=== PATIENT | male | born 1955 | race Caucasian/White ===

== ENCOUNTER 2021-10-06 19:37 | Emergency (ER) | payer BC, SELFPAY ==
[2021-10-06] VITALS (8 sets, daily range): BP systolic 129–219; BP diastolic 70–131; PULSE 74–125; RESP 12–22; TEMP 35.9–36.8; O2SAT 95–100
--- NOTE | ~2021-10-06 | XR_ITS ---
EXAMINATION: XR ankle LT min 3V DATE: 10/06/2021 19:51 INDICATION: Left ankle injury and pain and swelling. TECHNIQUE: 4 views of left ankle were obtained. COMPARISON: None. FINDINGS: There is a comminuted fracture of tibial plafond. The main distal fracture fragment which i ncludes the medial malleolus demonstrates 13 mm medial displacement and shortening. There is medial a nd proximal dislocation of talus with respect to the distal fibula. 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 There are enthesophytes at the posterior and plantar aspects of calcaneal tuberos ity. There is ankle soft tissue swelling. IMPRESSION: 1. Comminuted fracture of distal tibia. Reviewed, dictated and finalized at location A.
--- NOTE | ~2021-10-06 | XR_ITS ---
EXAMINATION: XR ankle LT 2V DATE: 10/06/2021 22:23 INDICATION: Distal left tibia fracture status post reduction. TECHNIQUE: 2 views of left ankle were obtained. COMPARISON: Left ankle radiographs at 7:43 PM FINDINGS: There is a comminuted fracture of tibial plafond. The main distal fracture fragment which i ncludes the medial malleolus demonstrates 13 mm medial displacement and shortening. There is medial a nd proximal dislocation of talus with respect to the distal fibula. 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 There are enthesophytes at the posterior and plantar aspects of calcaneal tuberos ity. There is ankle soft tissue swelling. Cast material is noted. IMPRESSION: 1. Comminuted fracture of distal tibia without change in alignment. Reviewed, dictated and finalized at location A.
[2021-10-06] MEDS: MORPHINE SULFATE (*CRX) 4 MG/ML INJ IV PUSH (21:14)
--- NOTE | 2021-10-06 21:17 | ED.LOWEXIN ---
HPI - Extremity Injury (Lower) General Chief Complaint: Extremity Injury, Lower Stated Complaint: left ankle pain Time Seen by Provider: 10/06/21 20:48 History of Present Illness HPI Narrative: 66-year-old male who excellently fell onto the right wall about 4 feet up, landing on his left foot, now endorsing severe pain from his left calf down. No numbness or tingling. Related Data Allergies Allergy/AdvReac Type Severity Reaction Status Date / Time No Known Allergies Allergy Unverified 01/24/16 10:51 Review of Systems Review of Systems: CONST: No fever. HEENT: No headache C/V: No chest pain RESP: No difficulty breathing GI: No nausea vomiting BACK: No pain M/S: Left foot pain. SKIN: No abrasions NEURO: No focal numbness PSYCH: [No depression] [facility] Surgical History Surgical History (Updated 10/07/21 @ 01:41 by Katiana Arce MD) History of intestinal surgery Social History Social History Smoking status: Never smoker Second hand tobacco smoke exposure: No Alcohol intake: never Exam Narrative: EXAMINATION OF ORGAN SYSTEMS/BODY AREAS: Constitutional: Vital signs per nursing GENERAL: Appears to be in pain HEAD: Normal with no signs of head trauma. EYES: EOMI, conjunctiva normal ENT: Hearing grossly intact LUNGS: Nonlabored breathing. HEART: [Regular rate and rhythm] ABD: [Soft], [nontender to palpation] EXT: Obvious deformity of the left ankle; neurovascularly intact SKIN: No rashes or lesions. NEURO: [Alert and oriented x 3. No gross focal sensory deficits.] PSYCH: Normal affect Course Course Emergency Course: 66-year-old male presents with trauma to left ankle after fall around 4 feet, endorsed severe pain in left ankle/lower leg, vital signs stable, exam does show obvious deformity to the left ankle, he is neurovascularly intact, x-ray does show tibial plafond fracture, case discussed with orthopedics here Dr. Bang who recommended transfer to Ortho trauma, could consider trying closed reduction but would not likely succeed. Discussed with Dr. Soo QUINTERO at [facility] who accepts ER to ER, in the meantime consent obtained for moderate sedation and attempt at closed reduction, risks benefits explained including possibility of failure of procedure, now. Unable to reduce the ankle, will attempt to keep patient's pain controlled, he continues to be neurovascularly intact at this time Vital Signs Vital signs: Vital Signs Temperature 97.8 F 10/06/21 20:01 Pulse Rate 97 10/06/21 20:01 Respiratory Rate 18 10/06/21 20:01 Blood Pressure 129/70 10/06/21 20:01 Pulse Oximetry 98 10/06/21 20:01 Temperature 97.3 F L 10/06/21 22:43 Pulse Rate 83 10/07/21 00:41 Respiratory Rate 25 H 10/07/21 00:41 Blood Pressure 127/77 10/07/21 00:41 Pulse Oximetry 98 10/07/21 00:41 Transfer Transfered to: [facility] Transportation: BLS Transfer rationale: No ortho trauma here, needs tertiary care. Discussed with Dr. Soo QUINTERO at [facility] Procedures Orthopedic Fracture Reduction Fracture #1: Fracture Reduction date: 10/06/21 Time Out Performed: Yes Side: left Fracture Reduction Location: tibia Analgesia: procedural sedation Pre-Procedure Neuro Vascular Exam: normal Technique: traction/counter-traction Post Reduction X-rays Demonstrate: other (No change) Post-reduction neuro exam: intact Post-reduction vascular exam: intact Splint Applied: No Patient Tolerated Procedure: no complications Procedural Sedation Procedural Sedation #1: Procedural Sedation Date: 10/06/21 Procedure: Closed reduction of left ankle Provider Performed: sedation and procedure Informed Consent Obtained: yes Equipment in Room: bag and mask, capnography, teletypesetter monitor, crash cart, oxygen, pulse oximeter and suction Plan for Sedation: moderate sedation
[2021-10-06 21:57] LABS: Anion Gap 7 mmol/L (8-16); Blood Urea Nitrogen 19 mg/dL (9-20); Calcium 8.8 mg/dL (8.4-10.2); Carbon Dioxide 26 mmol/L (22-30); Chloride 106 mmol/L (98-107); Estimated CRCL calculation 76 ml/min; Estimated Glomerular Filt Rate > 60; Glucose 111 mg/dL (65-110); Potassium 4.3 mmol/L (3.4-5.0); Sodium 139 mmol/L (137-145)
[2021-10-06] MEDS: SODIUM CHLORIDE 0.9% IV 1,000 ML 999 ML IV CONT (22:04)
[2021-10-06] MEDS: fentaNYL CITRATE INJ (*CRX) 100 MCG/2 ML VIAL IV PUSH (22:04)
--- NOTE | 2021-10-06 22:36 | PC.NURSE ---
Time out performed w/ Dr. Arce at bedside. Consent form signed and witness by this RN. 50mg ketamine administered at 2208 with an additional dose of 25mg administered at 2212.
[2021-10-06 23:04] LABS: Basophils Percent Auto 0.4 % (0.2-1.2); Eosinophils Absolute Auto 0.1 K/mm3 (0-0.3); Eosinophils Percent Auto 1.1 % (0-4.4); Hematocrit 43.2 % (42.0-52.0); Hemoglobin 14.6 g/dL (14.0-18.0); Immature Granulocyte Absolute 0.04 K/mm3 (0.00-0.031); Immature Granulocyte Percent A 0.4 % (0-0.5); Lymphocytes Absolute Auto 1.35 K/mm3 (0.9-3.2); Lymphocytes Percent Auto 14.9 % (18.3-44.2); Mean Corpuscular HGB Conc 33.8 g/dl (32-36); Mean Corpuscular Hemoglobin 30.4 pg (26-34); Mean Platelet Volume 9.5 fl (7.4-10.4); Monocytes Absolute Auto 0.6 K/mm3 (0.1-0.6); Neutrophils Absolute Auto 6.9 K/mm3 (1.3-6.7); Neutrophils Percent Auto 76.2 % (45.5-73.1); Platelet Count Result 245 k/mm3 (150-375); Red Cell Distribution Width 12.8 % (11.5-14.5); White Blood Count 9.1 K/mm3 (4.5-10.0)
[2021-10-06 23:14] LABS: INR 1.1; Prothrombin Time 13.4 Seconds (11.1-14.7)
[2021-10-06 23:15] LABS: Partial Thromboplastin Time 29.1 SECONDS (22.3-36.8)
[2021-10-06] MEDS: HYDROmorphone HCL INJ (*CRX) 1 MG/ML SYR IV PUSH (23:19)
[2021-10-07 00:41] VITALS: BP 127/77; PULSE 83; RESP 25; O2SAT 98
[2021-10-07] MEDS: HYDROmorphone HCL INJ (*CRX) 1 MG/ML SYR IV PUSH (00:42)
[2021-10-07] MEDS: HYDROmorphone HCL INJ (*CRX) 1 MG/ML SYR (02:36)
== END 2021-10-07 02:45 | disposition short-term general hospital (02) ==
PROVIDERS: Emergency Provider Emergency Medicine; PCP Physician Assistant
DX: S82.872A Displaced pilon fracture of left tibia, initial encounter for closed fracture (principal); W17.3XXA Fall into empty swimming pool, initial encounter
CPT/HCPCS: 27768; 27825; 36415; 73600; 73610; 80048; 85025; 85610; 85730; 96374; 96375; 96376; 99285; J1170; J2270; J3010; J7030